=== PATIENT | female | born 1965 | race Caucasian/White ===

== ENCOUNTER → 2017-02-25 | Outpatient (CLI) | payer MEDICARE, OTHER ==
[~2017-02-25] MED LIST: Aspirin Chewable PO; DEXTROAMP-AMPHE10 MG PO; Desyrel PO; FLEXERIL10 MG PO; LamiSIL PO; MEDROL DOSEPAK4 MG PO; NOHOMEMEDS; NORCO 7.5/321 TABLET PO; Neurontin PO; PRAVASTATIN SOD20 MG PO; PROzac PO; REQUIP2 MG PO; SKELAXIN800 MG PO; SPIRIVA1 INHALATI IH; Senokot,Sennagen PO; Soma PO; ULTRAM50 MG PO; Ultram PO; VOLTAREN75 MG PO; Vicodin,Norco 5/325 PO; Voltaren PO
== END | disposition home or self-care (01) ==
LOC: CDC 08:37
DX: R94.31 Abnormal electrocardiogram [ECG] [EKG] (principal); M48.06 Spinal stenosis, lumbar region
CPT/HCPCS: 93000

== ENCOUNTER 2017-03-03 05:58 | Inpatient (IN) | payer OTHER ==
[~2017-03-03] VITALS: Ht 157.5 cm; Wt 68.9 kg
[2017-03-03 07:21] VITALS: BP 97/62
[2017-03-03 08:26] LABS: METH RESISTANT S AUREUS PCR NEGATIVE (NEGATIVE)
[2017-03-03 08:29] LABS: PROBE CHECK PASS; SPECIMEN PROCESSING CONTROL PASS
[2017-03-03 15:09] VITALS: BP 100/65
[2017-03-03 16:10] LABS: INTERNAL CONTROL VALID? YES
[2017-03-03 19:36] VITALS: BP 115/60
[2017-03-03 23:22] VITALS: BP 97/56
[2017-03-04] VITALS (7 sets, daily range): BP systolic 82–134; BP diastolic 50–77
[2017-03-05 04:18] VITALS: BP 101/67
[2017-03-05 07:50] VITALS: BP 106/69
[2017-03-05 11:42] VITALS: BP 115/71
[2017-03-05 17:20] VITALS: BP 119/74
== END 2017-03-05 16:08 | disposition home or self-care (01) | DRG 460 ==
LOC: 2SOUTH → 3EAST 05:58 → 2SOUTH 10:25 → 3EAST 13:54
PROVIDERS: Neurological Surgery
PROC: 0SG00AJ Fusion of Lumbar Vertebral Joint with Interbody Fusion Device, Posterior Approach, Anterior Column, Open Approach (ICD-10-PCS; principal; 2017-03-03)
DX: M48.06 Spinal stenosis, lumbar region (principal); M43.16 Spondylolisthesis, lumbar region; M53.2X6 Spinal instabilities, lumbar region; G96.11 Dural tear; J45.909 Unspecified asthma, uncomplicated; G89.18 Other acute postprocedural pain; E78.00 Pure hypercholesterolemia, unspecified; F17.200 Nicotine dependence, unspecified, uncomplicated
CPT/HCPCS: 72020; 76000; 84703; 87641; 94640; 94640 76; 94799; J0690; J1100; J1170; J1580; J1885; J2250; J2405; J2710; J3010; J3370; J7030; J7120

== ENCOUNTER 2018-07-16 16:52 | Emergency (ER) | payer OTHER ==
[~2018-07-16] VITALS: Ht 157.5 cm; Wt 70.0 kg
[2018-07-16 18:43] LABS: HEMATOCRIT 40.9 % (36.0-46.0); HEMOGLOBIN 14.3 G/DL (11.9-15.5); MCH 32.8 PG (29.0-34.0); MCV 93.8 FL (83-99); PLATELET COUNT 277 K/uL (156-360); RBC DIS.WIDTH-CV 11.8 % (11.8-14.6); RBC DIS.WIDTH-SD 40.5 % (39-53); RED BLOOD COUNT 4.36 M/uL (3.80-5.20)
[2018-07-16 18:53] LABS: CHLORIDE 105 mEq/L (99-109); SODIUM 139 mEq/L (136-147)
[2018-07-16 18:54] LABS: GLUCOSE 96 mg/dL (70-99)
[2018-07-16 18:58] LABS: CREATININE 0.7 mg/dL (0.6-1.3); GFR ESTIMATE (CALCULATED) > 59 mL/min/
[2018-07-16 18:59] LABS: UREA NITROGEN (BUN) 8 mg/dL (9-23)
[2018-07-16 19:03] LABS: TROP-I INTERPRETATION NEGATIVE; TROPONIN-I < 0.01 ng/mL (0.0-0.30)
[2018-07-16 19:30] VITALS: BP 115/76
== END 2018-07-16 21:03 | disposition left against medical advice (07) ==
LOC: EME 16:52
DX: R07.9 Chest pain, unspecified (principal); R60.0 Localized edema; J44.9 Chronic obstructive pulmonary disease, unspecified; F17.200 Nicotine dependence, unspecified, uncomplicated
CPT/HCPCS: 71046; 80048; 84484; 85027; 93005; 93971; 99281; 99284